=== PATIENT | female | born 1960 | race Caucasian/White ===

== ENCOUNTER 2022-09-21 21:30 | Emergency (ER) | payer OTHER ==
[2022-09-21] VITALS (13 sets, daily range): BP systolic 118–196; BP diastolic 52–87
[~2022-09-21] VITALS: Ht 154.9 cm; Wt 54.0 kg
[2022-09-21 21:58] LABS: BASO% 0.2 % (0-3); EOS% 1.7 % (0-8); HEMATOCRIT 43.1 % (37.0-47.0); IMMATURE GRANULOCYTES 0.2 % (0.0-5.0); LYMPH% 24.2 % (15-41); MEAN CELL VOLUME 91.1 fL CALC (80.0-100.0); MEAN CORPUSCULAR HGB 29.6 pG CALC (26.0-32.0); MEAN CORPUSCULAR HGB CONC 32.5 g/dL CAL (32.0-36.0); MONO% 10.5 % (2-13); NEUT# 6.42 thou/uL (2.00-7.15); NEUT% 63.2 % (42-76); RED BLOOD COUNT 4.73 mill/uL (4.20-5.60); RED CELL DISTRI WIDTH 12.9 % (11.5-15.5)
[2022-09-21 22:10] LABS: ALBUMIN 4.5 g/dL (3.2-5.0); ALKALINE PHOSPHATASE 69 u/l (38-126); ANION GAP 13 (6-22 (CALC)); BILIRUBIN, TOTAL 0.4 mg/dL (0.02-1.3); BUN 13 mg/dL (8-23); BUN/CREATININE RATIO 14 (12-20 (CALC)); CARBON DIOXIDE 28 mmol/l (22-30); CHLORIDE 101 mmol/l (95-108); CREATININE 0.9 mg/dL (0.5-1.0); GFR FOR AFR.AMER. > 60 ML/MIN (>=60 (CALC)); GFR OTHER RACES > 60 ML/MIN (>=60 (CALC)); POTASSIUM 3.9 mmol/l (3.5-5.1); SGOT/AST 69 u/l (9-36); SODIUM 138 mmol/l (137-146); TOTAL PROTEIN 8.2 g/dL (6.3-8.2)
[2022-09-22 00:15] VITALS: BP 121/58
== END 2022-09-22 00:16 | disposition short-term general hospital (02) | DRG 103 ==
LOC: ED 21:30
PROVIDERS: Emergency Medicine
DX: R51.9 Headache, unspecified (principal); I10 Essential (primary) hypertension; Z98.890 Other specified postprocedural states